=== PATIENT | female | born 1965 ===

== ENCOUNTER 2018-09-11 16:59 | Inpatient (IN) ==
[2018-09-11] MEDS ORDERED: LACTATED RINGERS 500 ML IV ONE (17:23)
[2018-09-11] MEDS ORDERED: ONDANSETRON 4 MG/2 ML VIAL ONE (17:26)
[2018-09-11] MEDS ORDERED: HYDROmorphone 2 MG/1 ML VIAL ONE (17:26)
[2018-09-11] MEDS ORDERED: ONDANSETRON 4 MG/2 ML VIAL IV STA (17:30)
[2018-09-11] MEDS ORDERED: HYDROmorphone 2 MG/1 ML VIAL IV STA (17:30)
[2018-09-11 17:49] LABS: Basophils % 0.1 % (0.0-0.8); Hematocrit 39.2 VOL% (35.7-47.0); Hemoglobin 12.2 GM/DL (12.0-16.0); Immature Granulocytes % 1.6 %; Immature Granulocytes Absolute 0.11 #; Lymphocytes % 15.2 % (21.3-54.2); Mean Corpuscular HGB Conc 31.1 GM/DL (32-36); Mean Corpuscular Volume 87.5 FL (87-102); Mean Platelet Volume 10.3 FL (9.6-12.0); Monocytes % 1.8 % (1.7-12.7); Neutrophils % 81.3 % (38.7-73.9); Platelet Count 285 T/CUMM (130-400); Red Blood Count 4.48 MC/CUMM (3.8-5.5); Red Cell Distribution Width 13.7 % (9.3-17.3); White Blood Count 6.8 T/CUMM (4-12)
[2018-09-11 18:09] LABS: Albumin 3.5 G/DL (3.4-5.0); Bilirubin,Total 0.7 MG/DL (0.2-1.0); Calcium 10.6 MG/DL (8.5-10.1); Osmolality,Calculated 282.1 MOS/KG (273-304); Total Protein 7.1 G/DL (6.4-8.3)
[2018-09-11] MEDS ORDERED: LACTATED RINGERS 1,000 ML IV SCH (18:15)
[2018-09-11] MEDS ORDERED: ONDANSETRON 4 MG/2 ML VIAL IV PRN (18:23)
[2018-09-11 18:46] LABS: Lymphocytes 16 % (20-55); Platelet Estimate Normal; Segmented Neutrophils 83 % (50-85); Total Cells Counted 100
[2018-09-11 18:47] LABS: Hypochromasia Slight; Microcytosis Slight
[2018-09-11 18:59] LABS: Apearance,Urine Slightly Hazy (Clear); Bacteria,Urine Many /HPF (Few); Bilirubin,Urine Negative (Negative); Blood, Urine Negative (Negative); Glucose,Urine (UA) 150 mg/dL (Negative); Hyaline Casts,Urine 8 /LPF (0-3); Ketones,Urine Negative (Negative); Mucus,Urine Many /LPF (Occasional); Nitrite,Urine Negative (Negative); Protein,Urine 30 MG/DL; RBC,Urine 2 /HPF (0-4); Urine Color Yellow (Yellow); Urine Specific Gravity 1.028 (1.001-1.035); Urine Urobilinogen < 2.0 EU/DL (0.2-1.0); WBC,Urine 4 /HPF (0-6)
[2018-09-11] MEDS ORDERED: MICROFIBRILLAR COLLAGEN POWDER 1 GM CAN TOP ONE (19:16)
[2018-09-11] MEDS ORDERED: ALBUMIN 5% 12.5 GM/250 ML VIAL IV ONE (19:35)
[2018-09-11 19:47] LABS: ABG HCO3 19.7 MMOL/L (20-26); ABG Oxygen Saturation 99.3 % (95-100); ABG PCO2 39.6 MM HG (35-48); ABG PH 7.314 (7.35-7.45); ABG PO2 479.7 MM HG (80-95); ABG TCO2 20.9 MMOL/L (23-27); Glucose Heart Surgery 222 MG/DL (74-106); Hemoglobin Heart Surgery 11.3 G/DL (12.0-16.0); Ionized Calcium Arterial 1.22 MMOL/L (1.21-1.46); Potassium Heart/CVR 4.1 MMOL/L (3.5-5.1); Sodium Heart/CVR 133 MMOL/L (135-145)
[2018-09-11] MEDS ORDERED: SODIUM BICARBONATE 10 MEQ/10 ML SYRINGE IV ONE (20:06)
[2018-09-11] MEDS ORDERED: SODIUM BICARBONATE 50 MEQ/50 ML VIAL IV ONE ×2 (20:10→20:11)
[2018-09-11] MEDS ORDERED: MORPHINE 4 MG/1 ML VIAL IV PRN (21:31)
[2018-09-11] MEDS ORDERED: ACETAMINOPHEN 325 MG TABLET PO PRN (21:31)
[2018-09-11] MEDS ORDERED: PROPOFOL 200 MG/20 ML VIAL IV ONE (21:37)
[2018-09-11] MEDS ORDERED: MIDAZOLAM 2 MG/2 ML VIAL ONE (21:38)
[2018-09-11] MEDS ORDERED: ROCURONIUM 100 MG/10 ML VIAL IV ONE (21:38)
[2018-09-11] MEDS ORDERED: SEVOFLURANE 1 UNIT/15 MINUTE INH ONE (21:38)
[2018-09-11] MEDS ORDERED: fentaNYL 100 MCG/2 ML VIAL ONE (21:38)
[2018-09-11] MEDS ORDERED: PHENYLEPHRINE 1 MG/10 ML SYRINGE IV ONE (21:38)
[2018-09-11] MEDS ORDERED: MIDAZOLAM 10 MG/2 ML VIAL ONE (21:38)
[2018-09-11] MEDS ORDERED: SUCCINYLCHOLINE 200 MG/10 ML VIAL ONE (21:38)
[2018-09-11] MEDS ORDERED: HEPARIN/NACL 0.9% 2 UNITS/ML 500 ML IV ONE (21:38)
[2018-09-11] MEDS ORDERED: LACTATED RINGERS 4,000 ML IV ONE (21:39)
[2018-09-11] MEDS: LACTATED RINGERS 1,000 ML IV SCH (22:15)
[2018-09-11] MEDS: PIPERACILLIN/TAZOBACTAM 3,375 MG in SODIUM CHLORIDE 0.9% 100 ML IV SCH (22:22)
[2018-09-11] MEDS ORDERED: NOREPINEPHRINE 8 MG in SODIUM CHLORIDE 0.9% 242 ML IV PRN (22:22)
[2018-09-11 22:24] LABS: ABG Base Excess -2.7 MMOL/L (-2.5-2.5); ABG HCO3 23.8 MMOL/L (20-26); ABG Oxygen Saturation 99.2 % (95-100); ABG PCO2 48.9 MM HG (35-48); ABG PH 7.305 (7.35-7.45); ABG PO2 445.1 MM HG (80-95); ABG TCO2 25.3 MMOL/L (23-27)
[2018-09-11] MEDS: PROPOFOL 1,000 MG/100 ML BOTTLE IV SCH (23:15)
[2018-09-12 00:14] LABS: ABG Base Excess -1.2 MMOL/L (-2.5-2.5); ABG HCO3 22.9 MMOL/L (20-26); ABG Oxygen Saturation 98.6 % (95-100); ABG PCO2 36.1 MM HG (35-48)
[2018-09-12] MEDS: MORPHINE 4 MG/1 ML VIAL IV PRN ×6 (00:25→22:45)
[2018-09-12] MEDS: FLUCONAZOLE INJ 400 MG in PREMIX 1 EACH IV SCH (01:20)
[2018-09-12] MEDS: LACTATED RINGERS 1,000 ML IV SCH (04:01)
[2018-09-12 04:47] LABS: Basophils % 0.4 % (0.0-0.8); Hematocrit 30.7 VOL% (35.7-47.0); Immature Granulocytes % 0.4 %; Immature Granulocytes Absolute 0.02 #; Lymphocytes # 0.7 10*3/uL (1.4-4.0); Mean Corpuscular HGB Conc 31.9 GM/DL (32-36); Mean Corpuscular Volume 87.5 FL (87-102); Mean Platelet Volume 10.9 FL (9.6-12.0); Monocytes % 5.1 % (1.7-12.7); Neutrophils % 80.1 % (38.7-73.9); Platelet Count 218 T/CUMM (130-400); Red Cell Distribution Width 14.1 % (9.3-17.3); White Blood Count 4.9 T/CUMM (4-12)
[2018-09-12 04:57] LABS: Red Blood Count 3.51 MC/CUMM (3.8-5.5)
[2018-09-12 04:58] LABS: ABG Base Excess -1.1 MMOL/L (-2.5-2.5); ABG HCO3 23.5 MMOL/L (20-26); ABG Oxygen Saturation 99.7 % (95-100); ABG PCO2 34.2 MM HG (35-48); ABG PH 7.431 (7.35-7.45); ABG TCO2 20.6 MMOL/L (23-27); Hemoglobin 9.8 GM/DL (12.0-16.0)
[2018-09-12 05:27] LABS: Albumin 2.1 G/DL (3.4-5.0); Bilirubin,Total 0.8 MG/DL (0.2-1.0); Calcium 7.8 MG/DL (8.5-10.1); Osmolality,Calculated 288.8 MOS/KG (273-304); Total Protein 4.7 G/DL (6.4-8.3)
[2018-09-12 05:32] LABS: Band Neutrophils 31 % (0-10); Hypochromasia 1+; Lymphocytes 13 % (20-55); Metamyelocytes 8 %; Myelocytes 2 %; Platelet Estimate Normal; Segmented Neutrophils 42 % (50-85); Total Cells Counted 100
[2018-09-12] MEDS ORDERED: SODIUM CHLORIDE 0.9% 1,000 ML IV ONE (05:38)
[2018-09-12] MEDS: PIPERACILLIN/TAZOBACTAM 3,375 MG in SODIUM CHLORIDE 0.9% 100 ML IV SCH ×3 (06:12→22:13)
[2018-09-12] MEDS: DEXTROSE 5% NACL 0.45% 1,000 ML IV SCH ×3 (07:00→15:05)
[2018-09-12] MEDS: PROPOFOL 1,000 MG/100 ML BOTTLE IV SCH ×4 (08:16→21:09)
[2018-09-12] MEDS: INSULIN REGULAR 100 UNIT/ML SUBCUT SCH ×3 (08:52→17:34)
[2018-09-12] MEDS: PANTOPRAZOLE 40 MG VIAL IV SCH (08:52)
[2018-09-12] MEDS ORDERED: PANTOPRAZOLE 40 MG TABLET PO SCH (09:00)
[2018-09-12] MEDS: SODIUM CHLORIDE 0.9% 1,000 ML IV SCH ×2 (16:39→21:27)
[2018-09-12] MEDS: ALBUTEROL/IPRATROPIUM 3 ML NEB RESP TX SCH (20:11)
[2018-09-13] MEDS: INSULIN REGULAR 100 UNIT/ML SUBCUT SCH ×4 (00:32→17:59)
[2018-09-13] MEDS: ALBUTEROL/IPRATROPIUM 3 ML NEB RESP TX SCH ×4 (00:40→19:32)
[2018-09-13] MEDS: FLUCONAZOLE INJ 400 MG in PREMIX 1 EACH IV SCH (01:59)
[2018-09-13] MEDS: MORPHINE 4 MG/1 ML VIAL IV PRN ×3 (02:47→22:43)
[2018-09-13] MEDS: PROPOFOL 1,000 MG/100 ML BOTTLE IV SCH ×4 (02:49→23:22)
[2018-09-13] MEDS: SODIUM CHLORIDE 0.9% 1,000 ML IV SCH ×5 (02:50→23:24)
[2018-09-13 04:00] LABS: Basophils # 0.1 10*3/uL (0.0-0.2); Basophils % 0.8 % (0.0-0.8); Eosinophils # 0.1 10*3/uL (0.0-0.87); Eosinophils % 0.9 % (0.00-10.9); Hematocrit 26.9 VOL% (35.7-47.0); Hemoglobin 8.1 GM/DL (12.0-16.0); Immature Granulocytes % 1.7 %; Immature Granulocytes Absolute 0.13 #; Lymphocytes # 1.7 10*3/uL (1.4-4.0); Lymphocytes % 22.4 % (21.3-54.2); Mean Corpuscular HGB Conc 30.1 GM/DL (32-36); Mean Corpuscular Volume 89.7 FL (87-102); Monocytes % 0.5 % (1.7-12.7); Neutrophils % 73.7 % (38.7-73.9); Platelet Count 158 T/CUMM (130-400); Red Cell Distribution Width 14.3 % (9.3-17.3); White Blood Count 7.6 T/CUMM (4-12)
[2018-09-13 04:21] LABS: Calcium 6.5 MG/DL (8.5-10.1)
[2018-09-13 04:45] LABS: Band Neutrophils 17 % (0-10); Eosinophils 1 % (0-10); Lymphocytes 13 % (20-55); Metamyelocytes 5 %; Platelet Estimate Adequate; Segmented Neutrophils 63 % (50-85); Total Cells Counted 100
[2018-09-13 04:46] LABS: Anisocytosis 1+; Microcytosis 1+
[2018-09-13 05:15] LABS: ABG Base Excess -2.7 MMOL/L (-2.5-2.5); ABG HCO3 22.1 MMOL/L (20-26); ABG Oxygen Saturation 99.4 % (95-100); ABG PCO2 36.3 MM HG (35-48); ABG PH 7.387 (7.35-7.45); ABG TCO2 20.3 MMOL/L (23-27)
[2018-09-13] MEDS: PIPERACILLIN/TAZOBACTAM 3,375 MG in SODIUM CHLORIDE 0.9% 100 ML IV SCH ×3 (06:03→22:43)
[2018-09-13] MEDS: PANTOPRAZOLE 40 MG VIAL IV SCH (08:58)
[2018-09-13] MEDS ORDERED: ALBUMIN 5% 12.5 GM/250 ML VIAL IV ONE (11:06)
[2018-09-13] MEDS ORDERED: SEVOFLURANE 1 UNIT/15 MINUTE INH ONE (11:50)
[2018-09-13] MEDS ORDERED: MIDAZOLAM 10 MG/2 ML VIAL ONE (11:50)
[2018-09-13] MEDS ORDERED: SODIUM CHLORIDE 0.9% 1,000 ML IV ONE (11:51)
[2018-09-13] MEDS ORDERED: LACTATED RINGERS 1,000 ML IV ONE (11:51)
[2018-09-13] MEDS ORDERED: ROCURONIUM 100 MG/10 ML VIAL IV ONE (11:51)
[2018-09-13] MEDS ORDERED: PHENYLEPHRINE 1 MG/10 ML SYRINGE IV ONE (11:51)
[2018-09-13] MEDS ORDERED: MAGNESIUM SULF RIDER 4 GM in PREMIX 1 EACH IV PRN (15:26)
[2018-09-13] MEDS ORDERED: MAGNESIUM SULF RIDER 2 GM in PREMIX 1 EACH IV PRN (15:26)
[2018-09-14] MEDS: INSULIN REGULAR 100 UNIT/ML SUBCUT SCH ×4 (00:37→17:44)
[2018-09-14] MEDS: ALBUTEROL/IPRATROPIUM 3 ML NEB RESP TX SCH ×4 (00:52→19:53)
[2018-09-14] MEDS: SODIUM CHLORIDE 0.9% 1,000 ML IV SCH ×4 (02:05→17:59)
[2018-09-14] MEDS: FLUCONAZOLE INJ 400 MG in PREMIX 1 EACH IV SCH (03:11)
[2018-09-14] MEDS: PROPOFOL 1,000 MG/100 ML BOTTLE IV SCH ×4 (03:14→21:55)
[2018-09-14] MEDS: MORPHINE 4 MG/1 ML VIAL IV PRN (03:19)
[2018-09-14 04:33] LABS: Basophils # 0.1 10*3/uL (0.0-0.2); Basophils % 0.9 % (0.0-0.8); Eosinophils # 0.1 10*3/uL (0.0-0.87); Eosinophils % 0.7 % (0.00-10.9); Hematocrit 24.3 VOL% (35.7-47.0); Hemoglobin 7.5 GM/DL (12.0-16.0); Immature Granulocytes % 2.4 %; Immature Granulocytes Absolute 0.18 #; Lymphocytes # 1.2 10*3/uL (1.4-4.0); Mean Corpuscular HGB Conc 30.9 GM/DL (32-36); Mean Corpuscular Volume 90.7 FL (87-102); Mean Platelet Volume 10.8 FL (9.6-12.0); Monocytes % 3.5 % (1.7-12.7); Neutrophils % 76.5 % (38.7-73.9); Platelet Count 169 T/CUMM (130-400); Red Blood Count 2.68 MC/CUMM (3.8-5.5); Red Cell Distribution Width 14.6 % (9.3-17.3); White Blood Count 7.6 T/CUMM (4-12)
[2018-09-14 04:42] LABS: Albumin 1.6 G/DL (3.4-5.0); Bilirubin,Total 0.7 MG/DL (0.2-1.0); Calcium 7.1 MG/DL (8.5-10.1); Osmolality,Calculated 294.7 MOS/KG (273-304); Total Protein 4.8 G/DL (6.4-8.3)
[2018-09-14 05:01] LABS: Hypochromasia 1+; Microcytosis 1+; Platelet Estimate Adequate
[2018-09-14] MEDS: PIPERACILLIN/TAZOBACTAM 3,375 MG in SODIUM CHLORIDE 0.9% 100 ML IV SCH ×3 (05:41→21:56)
[2018-09-14] MEDS: PANTOPRAZOLE 40 MG VIAL IV SCH (09:06)
[2018-09-14] MEDS: METOPROLOL TARTRATE 5 MG/5 ML VIAL IV SCH ×2 (14:55→18:00)
[2018-09-15] MEDS: ALBUTEROL/IPRATROPIUM 3 ML NEB RESP TX SCH ×4 (00:20→19:23)
[2018-09-15] MEDS: INSULIN REGULAR 100 UNIT/ML SUBCUT SCH ×4 (01:17→18:23)
[2018-09-15] MEDS: METOPROLOL TARTRATE 5 MG/5 ML VIAL IV SCH ×4 (01:25→18:27)
[2018-09-15] MEDS: SODIUM CHLORIDE 0.9% 1,000 ML IV SCH (02:35)
[2018-09-15] MEDS: PROPOFOL 1,000 MG/100 ML BOTTLE IV SCH ×3 (02:36→11:48)
[2018-09-15] MEDS: FLUCONAZOLE INJ 400 MG in PREMIX 1 EACH IV SCH (02:38)
[2018-09-15] MEDS: MORPHINE 4 MG/1 ML VIAL IV PRN (02:44)
[2018-09-15 04:59] LABS: Basophils # 0.1 10*3/uL (0.0-0.2); Basophils % 1.1 % (0.0-0.8); Eosinophils # 0.1 10*3/uL (0.0-0.87); Eosinophils % 1.6 % (0.00-10.9); Hematocrit 30.9 VOL% (35.7-47.0); Hemoglobin 9.8 GM/DL (12.0-16.0); Immature Granulocytes Absolute 0.06 #; Lymphocytes # 1.3 10*3/uL (1.4-4.0); Mean Corpuscular HGB Conc 31.7 GM/DL (32-36); Mean Platelet Volume 10.6 FL (9.6-12.0); Monocytes % 7.8 % (1.7-12.7); Neutrophils % 67.5 % (38.7-73.9); Platelet Count 163 T/CUMM (130-400); Red Blood Count 3.51 MC/CUMM (3.8-5.5); Red Cell Distribution Width 15.5 % (9.3-17.3); White Blood Count 6.1 T/CUMM (4-12)
[2018-09-15 05:25] LABS: Calcium 7.6 MG/DL (8.5-10.1); Osmolality,Calculated 297.3 MOS/KG (273-304)
[2018-09-15 05:35] LABS: ABG Base Excess -8.4 MMOL/L (-2.5-2.5); ABG HCO3 15.7 MMOL/L (20-26); ABG Oxygen Saturation 97.5 % (95-100); ABG PH 7.366 (7.35-7.45); ABG PO2 108.3 MM HG (80-95); ABG TCO2 16.5 MMOL/L (23-27)
[2018-09-15 05:48] LABS: Band Neutrophils 11 % (0-10); Eosinophils 2 % (0-10); Lymphocytes 21 % (20-55); Nucleated Red Blood Cells 1 (0-5); Platelet Estimate Normal; Segmented Neutrophils 59 % (50-85); Total Cells Counted 100
[2018-09-15 05:49] LABS: Hypochromasia 2+
[2018-09-15] MEDS: PIPERACILLIN/TAZOBACTAM 3,375 MG in SODIUM CHLORIDE 0.9% 100 ML IV SCH ×2 (06:32→13:15)
[2018-09-15] MEDS ORDERED: CALCIUM GLUCONATE 1,000 MG in SODIUM CHLORIDE 0.9% 100 ML IV ONE (08:00)
[2018-09-15] MEDS: POTASSIUM CHLORIDE RIDER 20 MEQ in PREMIX 1 EACH IV PRN ×4 (08:05→23:00)
[2018-09-15] MEDS: SODIUM CHLORIDE 0.45% 1,000 ML IV SCH ×2 (08:16→17:01)
[2018-09-15] MEDS: PANTOPRAZOLE 40 MG VIAL IV SCH (09:18)
[2018-09-15] MEDS ORDERED: MIDAZOLAM 10 MG/2 ML VIAL ONE (13:23)
[2018-09-15] MEDS ORDERED: ALBUMIN 5% 12.5 GM/250 ML VIAL IV ONE ×2 (13:23→13:25)
[2018-09-15] MEDS ORDERED: ROCURONIUM 100 MG/10 ML VIAL IV ONE (13:24)
[2018-09-15] MEDS: POTASSIUM CHLORIDE RIDER 10 MEQ in PREMIX 1 EACH IV PRN (14:09)
[2018-09-15] MEDS ORDERED: GLUCAGON 1 MG VIAL IM PRN (14:10)
[2018-09-15] MEDS: ENALAPRIL 2.5 MG/2 ML VIAL IV SCH ×2 (14:11→21:30)
[2018-09-15] MEDS ORDERED: ELECTROLYTE CONCENTRATE 20 ML, TRACE ELEMENTS (5) 1 ML, MULTIVITAMIN INJ 10 ML, INSULIN... IV SCH (17:00)
[2018-09-16] MEDS: METOPROLOL TARTRATE 5 MG/5 ML VIAL IV SCH ×4 (00:14→18:29)
[2018-09-16] MEDS: INSULIN REGULAR 100 UNIT/ML SUBCUT SCH ×4 (00:14→18:29)
[2018-09-16] MEDS: SODIUM CHLORIDE 0.45% 1,000 ML IV SCH ×3 (00:15→20:06)
[2018-09-16] MEDS: ALBUTEROL/IPRATROPIUM 3 ML NEB RESP TX SCH ×4 (00:37→19:39)
[2018-09-16] MEDS: POTASSIUM CHLORIDE RIDER 10 MEQ in PREMIX 1 EACH IV PRN ×2 (01:00→11:30)
[2018-09-16] MEDS: FLUCONAZOLE INJ 400 MG in PREMIX 1 EACH IV SCH (01:05)
[2018-09-16 04:58] LABS: Allen Test Positive; Pt O2 Delivery Device Ventilator
[2018-09-16 05:01] LABS: ABG Base Excess -5.5 MMOL/L (-2.5-2.5); ABG HCO3 19.8 MMOL/L (20-26); ABG Oxygen Saturation 95.6 % (95-100); ABG PCO2 27.6 MM HG (35-48); ABG PH 7.417 (7.35-7.45); ABG PO2 71.2 MM HG (80-95)
[2018-09-16 05:19] LABS: Blood Urea Nitrogen 8 MG/DL (7-18); Calcium 8.5 MG/DL (8.5-10.1); Glucose 158 MG/DL (74-106); Prealbumin < 3.0 MG/DL (20-40); Triglycerides 593 MG/DL (2-150)
[2018-09-16] MEDS: PROPOFOL 1,000 MG/100 ML BOTTLE IV SCH ×3 (05:31→23:53)
[2018-09-16] MEDS: POTASSIUM CHLORIDE RIDER 20 MEQ in PREMIX 1 EACH IV PRN ×2 (05:40→09:08)
[2018-09-16] MEDS: ENALAPRIL 2.5 MG/2 ML VIAL IV SCH ×2 (09:00→20:47)
[2018-09-16] MEDS ORDERED: PNEUMOCOCCAL VACCINE (23 VALENT) 0.5 ML VIAL IM ONE (09:00)
[2018-09-16] MEDS: PANTOPRAZOLE 40 MG VIAL IV SCH (09:04)
[2018-09-16] MEDS: MEROPENEM 1,000 MG in SODIUM CHLORIDE 0.9% 100 ML IV SCH ×2 (09:04→18:19)
[2018-09-16 09:06] LABS: Basophils % 0.1 % (0.0-0.8); Eosinophils # 0.2 10*3/uL (0.0-0.87); Eosinophils % 1.2 % (0.00-10.9); Hematocrit 32.3 VOL% (35.7-47.0); Hemoglobin 10.2 GM/DL (12.0-16.0); Immature Granulocytes % 1.3 %; Immature Granulocytes Absolute 0.18 #; Lymphocytes # 2.5 10*3/uL (1.4-4.0); Lymphocytes % 18.3 % (21.3-54.2); Mean Corpuscular HGB Conc 31.6 GM/DL (32-36); Mean Corpuscular Volume 87.1 FL (87-102); Mean Platelet Volume 10.3 FL (9.6-12.0); Monocytes % 8.9 % (1.7-12.7); NRBC # 0.02 10*3/uL; Neutrophils % 70.2 % (38.7-73.9); Platelet Count 161 T/CUMM (130-400); Red Blood Count 3.71 MC/CUMM (3.8-5.5); Red Cell Distribution Width 15.6 % (9.3-17.3); White Blood Count 13.4 T/CUMM (4-12)
[2018-09-16 09:26] LABS: Band Neutrophils 10 % (0-10); Eosinophils 3 % (0-10); Lymphocytes 24 % (20-55); Segmented Neutrophils 48 % (50-85); Total Cells Counted 100
[2018-09-16 09:27] LABS: Hypochromasia Slight; Platelet Estimate Adequate
[2018-09-16] MEDS ORDERED: SODIUM PHOSPHATE INJ 15 MMOL in SODIUM CHLORIDE 0.9% 250 ML IV ONE (11:06)
[2018-09-16] MEDS ORDERED: LACTATED RINGERS 1,000 ML IV ONE (15:55)
[2018-09-16] MEDS ORDERED: MULTIVITAMIN IV SCH (17:00)
[2018-09-16] MEDS ORDERED: ELECTROLYTE IV SCH (17:00)
[2018-09-16] MEDS ORDERED: [UNRECOGNIZED DRUG - OTHER] IV SCH (17:00)
[2018-09-16] MEDS ORDERED: TRACE ELEMENTS IV SCH (17:00)
[2018-09-16] MEDS ORDERED: LACTATED RINGERS 500 ML IV ONE (18:11)
[2018-09-16] MEDS: ELECTROLYTE CONCENTRATE 40 ML, TRACE ELEMENTS (5) 1 ML, MULTIVITAMIN INJ 10 ML, INSULIN... IV SCH (18:23)
[2018-09-16] MEDS: fentaNYL INJ 1,250 MCG in SODIUM CHLORIDE 0.9% 225 ML IV PRN (22:00)
[2018-09-17] MEDS: METOPROLOL TARTRATE 5 MG/5 ML VIAL IV SCH ×4 (00:41→18:45)
[2018-09-17] MEDS: ALBUTEROL/IPRATROPIUM 3 ML NEB RESP TX SCH ×4 (00:41→20:31)
[2018-09-17] MEDS: MEROPENEM 1,000 MG in SODIUM CHLORIDE 0.9% 100 ML IV SCH ×3 (00:55→17:51)
[2018-09-17] MEDS: INSULIN REGULAR 100 UNIT/ML SUBCUT SCH ×4 (00:55→18:34)
[2018-09-17] MEDS: FLUCONAZOLE INJ 400 MG in PREMIX 1 EACH IV SCH (01:02)
[2018-09-17] MEDS: SODIUM CHLORIDE 0.45% 1,000 ML IV SCH ×3 (04:06→23:00)
[2018-09-17 05:00] LABS: Allen Test Positive; Pt O2 Delivery Device Ventilator
[2018-09-17 05:02] LABS: ABG Base Excess -7.1 MMOL/L (-2.5-2.5); ABG HCO3 18.6 MMOL/L (20-26); ABG PCO2 30.8 MM HG (35-48); ABG PH 7.362 (7.35-7.45); ABG PO2 81.1 MM HG (80-95); ABG TCO2 16.2 MMOL/L (23-27)
[2018-09-17 05:25] LABS: Basophils # 0.1 10*3/uL (0.0-0.2); Basophils % 0.7 % (0.0-0.8); Eosinophils # 0.1 10*3/uL (0.0-0.87); Eosinophils % 0.9 % (0.00-10.9); Hemoglobin 8.7 GM/DL (12.0-16.0); Immature Granulocytes % 2.6 %; Immature Granulocytes Absolute 0.31 #; Lymphocytes # 2.8 10*3/uL (1.4-4.0); Lymphocytes % 23.3 % (21.3-54.2); Mean Corpuscular HGB Conc 31.1 GM/DL (32-36); Mean Corpuscular Volume 88.6 FL (87-102); Mean Platelet Volume 11.3 FL (9.6-12.0); Monocytes % 7.6 % (1.7-12.7); NRBC # 0.05 10*3/uL; Neutrophils % 64.9 % (38.7-73.9); Platelet Count 103 T/CUMM (130-400); Red Blood Count 3.16 MC/CUMM (3.8-5.5); Red Cell Distribution Width 15.8 % (9.3-17.3); White Blood Count 11.9 T/CUMM (4-12)
[2018-09-17 05:42] LABS: Hypochromasia Slight
[2018-09-17 05:44] LABS: Blood Urea Nitrogen 26 MG/DL (7-18); Calcium 7.6 MG/DL (8.5-10.1); Glucose 180 MG/DL (74-106); HDL Cholesterol < 10 MG/DL (40-60); Osmolality,Calculated 318.2 MOS/KG (273-304); Triglycerides 357 MG/DL (2-150); VLDL CHOLESTEROL 71.4 MG/DL
[2018-09-17] MEDS ORDERED: ACETAMINOPHEN 650 MG SUPP RECTAL PRN (07:06)
[2018-09-17] MEDS: PANTOPRAZOLE 40 MG VIAL IV SCH (09:31)
[2018-09-17] MEDS: ENALAPRIL 2.5 MG/2 ML VIAL IV SCH (09:32)
[2018-09-17] MEDS: fentaNYL INJ 1,250 MCG in SODIUM CHLORIDE 0.9% 225 ML IV PRN (11:06)
[2018-09-17] MEDS ORDERED: SEVOFLURANE 1 UNIT/15 MINUTE INH ONE (13:10)
[2018-09-17] MEDS ORDERED: PROPOFOL 200 MG/20 ML VIAL IV ONE (13:10)
[2018-09-17] MEDS ORDERED: PHENYLEPHRINE 1 MG/10 ML SYRINGE IV ONE (13:11)
[2018-09-17] MEDS ORDERED: MIDAZOLAM 2 MG/2 ML VIAL ONE (13:11)
[2018-09-17] MEDS ORDERED: ROCURONIUM 100 MG/10 ML VIAL IV ONE (13:11)
[2018-09-17] MEDS: ELECTROLYTE CONCENTRATE 40 ML, TRACE ELEMENTS (5) 1 ML, MULTIVITAMIN INJ 10 ML, INSULIN... IV SCH ×2 (14:39→14:40)
[2018-09-17] MEDS ORDERED: ASPIRIN 300 MG SUPP RECTAL SCH (21:00)
[2018-09-17] MEDS: ASPIRIN 300 MG SUPP RECTAL SCH (21:50)
[2018-09-18] MEDS: MEROPENEM 1,000 MG in SODIUM CHLORIDE 0.9% 100 ML IV SCH ×3 (01:20→17:36)
[2018-09-18] MEDS: PROPOFOL 1,000 MG/100 ML BOTTLE IV SCH (01:23)
[2018-09-18] MEDS: METOPROLOL TARTRATE 5 MG/5 ML VIAL IV SCH ×4 (01:24→18:50)
[2018-09-18] MEDS: INSULIN REGULAR 100 UNIT/ML SUBCUT SCH ×4 (01:24→18:30)
[2018-09-18] MEDS: ALBUTEROL/IPRATROPIUM 3 ML NEB RESP TX SCH ×4 (01:44→19:37)
[2018-09-18] MEDS: FLUCONAZOLE INJ 400 MG in PREMIX 1 EACH IV SCH (03:00)
[2018-09-18 04:33] LABS: ABG Base Excess -8.2 MMOL/L (-2.5-2.5); ABG HCO3 17.7 MMOL/L (20-26); ABG Oxygen Saturation 89.9 % (95-100); ABG PCO2 34.2 MM HG (35-48); ABG PH 7.311 (7.35-7.45); ABG PO2 63.1 MM HG (80-95); Allen Test Positive; Pt O2 Delivery Device Ventilator
[2018-09-18 05:14] LABS: Basophils # 0.1 10*3/uL (0.0-0.2); Basophils % 0.9 % (0.0-0.8); Eosinophils # 0.2 10*3/uL (0.0-0.87); Hematocrit 29.3 VOL% (35.7-47.0); Hemoglobin 8.7 GM/DL (12.0-16.0); Immature Granulocytes % 4.1 %; Immature Granulocytes Absolute 0.42 #; Lymphocytes # 2.5 10*3/uL (1.4-4.0); Lymphocytes % 24.4 % (21.3-54.2); Mean Corpuscular HGB Conc 29.7 GM/DL (32-36); Mean Corpuscular Volume 94.5 FL (87-102); Mean Platelet Volume 12.8 FL (9.6-12.0); Monocytes % 9.4 % (1.7-12.7); Neutrophils % 59.2 % (38.7-73.9); Platelet Count 74 T/CUMM (130-400); Red Cell Distribution Width 17.1 % (9.3-17.3); White Blood Count 10.1 T/CUMM (4-12)
[2018-09-18 05:45] LABS: Calcium 7.3 MG/DL (8.5-10.1); Osmolality,Calculated 319.6 MOS/KG (273-304)
[2018-09-18] MEDS: SODIUM CHLORIDE 0.45% 1,000 ML IV SCH ×3 (06:06→19:45)
[2018-09-18 06:38] LABS: Band Neutrophils 3 % (0-10); Eosinophils 2 % (0-10); Lymphocytes 21 % (20-55); Metamyelocytes 2 %; Myelocytes 2 %; Segmented Neutrophils 65 % (50-85); Total Cells Counted 100
[2018-09-18 06:39] LABS: Anisocytosis Slight; Microcytosis Slight; Polychromasia Slight
[2018-09-18 06:40] LABS: Ovalocytes Slight; Platelet Estimate Decreased
[2018-09-18] MEDS ORDERED: HEPARIN/NACL 0.9% 2 UNITS/ML 500 ML IV ONE (08:30)
[2018-09-18] MEDS: PANTOPRAZOLE 40 MG VIAL IV SCH (09:30)
[2018-09-18] MEDS: ASPIRIN 300 MG SUPP RECTAL SCH (09:30)
[2018-09-18] MEDS ORDERED: ROCURONIUM 100 MG/10 ML VIAL IV ONE (11:08)
[2018-09-18] MEDS ORDERED: PHENYLEPHRINE 1 MG/10 ML SYRINGE IV ONE (11:08)
[2018-09-18] MEDS ORDERED: fentaNYL 100 MCG/2 ML VIAL ONE (11:08)
[2018-09-18] MEDS ORDERED: SEVOFLURANE 1 UNIT/15 MINUTE INH ONE (11:08)
[2018-09-18] MEDS: ELECTROLYTE CONCENTRATE 40 ML, TRACE ELEMENTS (5) 1 ML, MULTIVITAMIN INJ 10 ML, INSULIN... IV SCH ×2 (11:36→12:24)
[2018-09-19] MEDS: INSULIN REGULAR 100 UNIT/ML SUBCUT SCH ×4 (01:00→18:40)
[2018-09-19] MEDS: METOPROLOL TARTRATE 5 MG/5 ML VIAL IV SCH ×4 (01:00→18:32)
[2018-09-19] MEDS: ALBUTEROL/IPRATROPIUM 3 ML NEB RESP TX SCH ×4 (01:41→19:50)
[2018-09-19] MEDS: PROPOFOL 1,000 MG/100 ML BOTTLE IV SCH ×2 (01:48→21:33)
[2018-09-19] MEDS: MEROPENEM 1,000 MG in SODIUM CHLORIDE 0.9% 100 ML IV SCH ×3 (02:00→17:46)
[2018-09-19] MEDS: FLUCONAZOLE INJ 400 MG in PREMIX 1 EACH IV SCH (02:41)
[2018-09-19] MEDS: SODIUM CHLORIDE 0.45% 1,000 ML IV SCH ×4 (04:27→22:19)
[2018-09-19 05:17] LABS: ABG Base Excess -9.2 MMOL/L (-2.5-2.5); ABG Oxygen Saturation 99.4 % (95-100); ABG PH 7.382 (7.35-7.45); ABG TCO2 13.9 MMOL/L (23-27)
[2018-09-19 05:26] LABS: Basophils # 0.1 10*3/uL (0.0-0.2); Basophils % 0.6 % (0.0-0.8); Eosinophils # 0.3 10*3/uL (0.0-0.87); Eosinophils % 3.2 % (0.00-10.9); Hematocrit 25.7 VOL% (35.7-47.0); Hemoglobin 8.1 GM/DL (12.0-16.0); Immature Granulocytes % 8.1 %; Immature Granulocytes Absolute 0.75 #; Lymphocytes # 2.2 10*3/uL (1.4-4.0); Lymphocytes % 23.8 % (21.3-54.2); Mean Corpuscular HGB Conc 31.5 GM/DL (32-36); Mean Corpuscular Volume 87.7 FL (87-102); Mean Platelet Volume 12.2 FL (9.6-12.0); Monocytes % 7.5 % (1.7-12.7); NRBC # 0.07 10*3/uL; Neutrophils % 56.8 % (38.7-73.9); Platelet Count 128 T/CUMM (130-400); Red Blood Count 2.93 MC/CUMM (3.8-5.5); Red Cell Distribution Width 16.5 % (9.3-17.3); White Blood Count 9.2 T/CUMM (4-12)
[2018-09-19 05:48] LABS: Calcium 7.2 MG/DL (8.5-10.1)
[2018-09-19 06:29] LABS: Anisocytosis 1+; Eosinophils 5 % (0-10); Lymphocytes 23 % (20-55); Segmented Neutrophils 65 % (50-85); Total Cells Counted 100
[2018-09-19 06:30] LABS: Hypochromasia 1+; Ovalocytes 1+; Platelet Estimate Decreased; Polychromasia 1+
[2018-09-19] MEDS: ASPIRIN 300 MG SUPP RECTAL SCH (08:59)
[2018-09-19] MEDS: PANTOPRAZOLE 40 MG VIAL IV SCH (08:59)
[2018-09-19] MEDS ORDERED: ENOXAPARIN 40 MG/0.4 ML SYRINGE SUBCUT SCH (10:00)
[2018-09-19] MEDS: ELECTROLYTE CONCENTRATE 40 ML, TRACE ELEMENTS (5) 1 ML, MULTIVITAMIN INJ 10 ML, INSULIN... IV SCH ×2 (11:50→23:43)
[2018-09-19] MEDS: HEPARIN DRIP 25,000 UNITS/500 ML PREMIX IV SCH (17:51)
[2018-09-20] MEDS: ALBUTEROL/IPRATROPIUM 3 ML NEB RESP TX SCH ×4 (01:20→20:31)
[2018-09-20] MEDS: INSULIN REGULAR 100 UNIT/ML SUBCUT SCH ×4 (02:01→18:32)
[2018-09-20] MEDS: METOPROLOL TARTRATE 5 MG/5 ML VIAL IV SCH ×5 (02:01→18:48)
[2018-09-20] MEDS: MEROPENEM 1,000 MG in SODIUM CHLORIDE 0.9% 100 ML IV SCH ×3 (02:12→16:43)
[2018-09-20] MEDS ORDERED: hydrALAZINE 20 MG/1 ML VIAL IV ONE (05:29)
[2018-09-20 05:37] LABS: ABG Base Excess -7.4 MMOL/L (-2.5-2.5); ABG HCO3 18.4 MMOL/L (20-26); ABG Oxygen Saturation 99.3 % (95-100); ABG PH 7.418 (7.35-7.45)
[2018-09-20 05:41] LABS: Basophils # 0.1 10*3/uL (0.0-0.2); Basophils % 0.6 % (0.0-0.8); Eosinophils # 0.3 10*3/uL (0.0-0.87); Eosinophils % 2.8 % (0.00-10.9); Hematocrit 25.5 VOL% (35.7-47.0); Hemoglobin 8.1 GM/DL (12.0-16.0); Immature Granulocytes % 9.7 %; Immature Granulocytes Absolute 1.12 #; Mean Corpuscular HGB Conc 31.8 GM/DL (32-36); Mean Corpuscular Volume 88.5 FL (87-102); Mean Platelet Volume 12.9 FL (9.6-12.0); Monocytes % 7.6 % (1.7-12.7); NRBC # 0.08 10*3/uL; Neutrophils % 53.3 % (38.7-73.9); Platelet Count 224 T/CUMM (130-400); Red Blood Count 2.88 MC/CUMM (3.8-5.5); Red Cell Distribution Width 17.1 % (9.3-17.3); White Blood Count 11.5 T/CUMM (4-12)
[2018-09-20 06:03] LABS: Band Neutrophils 5 % (0-10); Eosinophils 3 % (0-10); Hypochromasia 1+; Lymphocytes 27 % (20-55); Myelocytes 2 %; Platelet Estimate Adequate; Segmented Neutrophils 57 % (50-85); Total Cells Counted 100
[2018-09-20 06:04] LABS: Microcytosis Slight
[2018-09-20] MEDS: SODIUM CHLORIDE 0.45% 1,000 ML IV SCH ×3 (06:04→22:58)
[2018-09-20 06:06] LABS: Calcium 7.3 MG/DL (8.5-10.1); Osmolality,Calculated 298.6 MOS/KG (273-304)
[2018-09-20] MEDS: fentaNYL INJ 1,250 MCG in SODIUM CHLORIDE 0.9% 225 ML IV PRN ×2 (06:12→20:35)
[2018-09-20] MEDS: ELECTROLYTE CONCENTRATE 40 ML, TRACE ELEMENTS (5) 1 ML, MULTIVITAMIN INJ 10 ML, INSULIN... IV SCH ×2 (08:02→08:06)
[2018-09-20] MEDS: PANTOPRAZOLE 40 MG VIAL IV SCH (08:07)
[2018-09-20] MEDS: ASPIRIN 300 MG SUPP RECTAL SCH (08:08)
[2018-09-20] MEDS: DEXTROSE 50% 25 GM/50 ML SYRINGE IV PRN ×3 (11:46→18:20)
[2018-09-20] MEDS: HEPARIN DRIP 25,000 UNITS/500 ML PREMIX IV SCH ×2 (16:34→19:50)
[2018-09-20] MEDS: DEXTROSE 10% 1,000 ML IV PRN (19:25)
[2018-09-20] MEDS: PROPOFOL 1,000 MG/100 ML BOTTLE IV SCH (21:09)
[2018-09-21] MEDS: METOPROLOL TARTRATE 5 MG/5 ML VIAL IV SCH ×3 (00:12→13:08)
[2018-09-21] MEDS: INSULIN REGULAR 100 UNIT/ML SUBCUT SCH ×3 (00:12→13:04)
[2018-09-21] MEDS: ALBUTEROL/IPRATROPIUM 3 ML NEB RESP TX SCH ×3 (00:34→12:24)
[2018-09-21] MEDS: MEROPENEM 1,000 MG in SODIUM CHLORIDE 0.9% 100 ML IV SCH ×2 (01:09→09:43)
[2018-09-21] MEDS: ELECTROLYTE CONCENTRATE 40 ML, TRACE ELEMENTS (5) 1 ML, MULTIVITAMIN INJ 10 ML, INSULIN... IV SCH (01:45)
[2018-09-21 05:15] LABS: ABG Base Excess -9.5 MMOL/L (-2.5-2.5); ABG HCO3 13.6 MMOL/L (20-26); ABG Oxygen Saturation 98.8 % (95-100); ABG PCO2 21.5 MM HG (35-48); ABG PO2 186.9 MM HG (80-95); ABG TCO2 14.3 MMOL/L (23-27)
[2018-09-21 05:21] LABS: Basophils # 0.1 10*3/uL (0.0-0.2); Basophils % 0.8 % (0.0-0.8); Eosinophils # 0.2 10*3/uL (0.0-0.87); Eosinophils % 1.7 % (0.00-10.9); Hematocrit 26.1 VOL% (35.7-47.0); Hemoglobin 8.2 GM/DL (12.0-16.0); Immature Granulocytes % 7.9 %; Immature Granulocytes Absolute 1.04 #; Lymphocytes # 2.6 10*3/uL (1.4-4.0); Lymphocytes % 19.7 % (21.3-54.2); Mean Corpuscular HGB Conc 31.4 GM/DL (32-36); Mean Corpuscular Volume 88.2 FL (87-102); Mean Platelet Volume 12.6 FL (9.6-12.0); Monocytes % 6.2 % (1.7-12.7); NRBC # 0.04 10*3/uL; Neutrophils % 63.7 % (38.7-73.9); Platelet Count 245 T/CUMM (130-400); Red Blood Count 2.96 MC/CUMM (3.8-5.5); Red Cell Distribution Width 17.1 % (9.3-17.3); White Blood Count 13.2 T/CUMM (4-12)
[2018-09-21] MEDS: DEXTROSE 10% 1,000 ML IV PRN (05:37)
[2018-09-21 05:41] LABS: Calcium 7.8 MG/DL (8.5-10.1); Osmolality,Calculated 314.6 MOS/KG (273-304)
[2018-09-21 06:01] LABS: Anisocytosis 1+; Band Neutrophils 12 % (0-10); Eosinophils 1 % (0-10); Hypochromasia 1+; Lymphocytes 10 % (20-55); Metamyelocytes 1 %; Microcytosis 1+; Nucleated Red Blood Cells 1 (0-5); Segmented Neutrophils 72 % (50-85); Total Cells Counted 100
[2018-09-21 06:02] LABS: Platelet Estimate Adequate
[2018-09-21] MEDS: SODIUM CHLORIDE 0.45% 1,000 ML IV SCH ×2 (07:40→17:44)
[2018-09-21] MEDS: PANTOPRAZOLE 40 MG VIAL IV SCH (09:39)
[2018-09-21] MEDS: ASPIRIN 300 MG SUPP RECTAL SCH (09:50)
[2018-09-21] MEDS ORDERED: MORPHINE 4 MG/1 ML VIAL IV PRN (16:20)
[2018-09-21] MEDS ORDERED: MULTIVITAMIN IV SCH (17:00)
[2018-09-21] MEDS ORDERED: STERILE WATER IV SCH (17:00)
[2018-09-21] MEDS ORDERED: AMINO ACIDS IV SCH (17:00)
[2018-09-21] MEDS ORDERED: ELECTROLYTE IV SCH (17:00)
[2018-09-21] MEDS ORDERED: [UNRECOGNIZED DRUG - OTHER] IV SCH (17:00)
[2018-09-21] MEDS ORDERED: DEXTROSE 10% 1,000 ML IV PRN (17:00)
[2018-09-21] MEDS ORDERED: TRACE ELEMENTS IV SCH (17:00)
[2018-09-21] MEDS ORDERED: DEXTROSE 30% IV SCH (17:00)
[2018-09-21 17:25] VITALS: BP 70/34
== END 2018-09-21 18:01 | disposition expired | DRG 853 ==
LOC: N.ED 16:59 → N.EDINP 18:38 → N.CC 18:44
PROVIDERS: ADMIT Surgery; ATTEND Surgery